=== PATIENT | male | born 1930 | race Caucasian/White ===

== ENCOUNTER 2021-05-02 18:03 | Inpatient (IN) ==
[2021-05-03] MEDS ORDERED: Dextrose Gel 15 GM/37.5 ML TUBE PO PRN ×2 (01:13)
[2021-05-03] MEDS ORDERED: *HR* Dextrose 50 % in Water (Syg) 50 ML SYRINGE IVP PRN (01:13)
[2021-05-03] MEDS ORDERED: D5% in Water 1,000 ML IVC PRN (01:13)
[2021-05-03] MEDS ORDERED: Perflutren Lipid Microsphere 1.3 ML in 0.9 % Sodium Chloride 8.7 ML IVP PRN (01:13)
[2021-05-03] MEDS ORDERED: Naloxone 0.4 MG/ML INJ IVP PRN (01:16)
[2021-05-03] MEDS ORDERED: Ondansetron 4 MG/2 ML VIAL IVP PRN (01:16)
[2021-05-03] MEDS ORDERED: Acetaminophen 325 MG TABLET PO PRN (01:26)
[2021-05-03] MEDS ORDERED: tiZANidine 4 MG TABLET PO PRN (01:47)
[2021-05-03 01:57] LABS: Basophils % 0.7 %; Eosinophils # 0.2 K/mcL (0.0-0.6); Eosinophils % 3.6 %; Hematocrit 31.3 % (37.5-50.1); Hemoglobin 9.7 g/dL (12.9-16.9); Immature Granulocytes % 1.1 % (0-4); Lymphocytes # 0.5 K/mcL (0.6-4.6); Lymphocytes % 9.7 %; Mean Corpuscular Hemoglobin 28.8 pg (28.0-33.3); Mean Corpuscular Volume 92.9 fL (83.0-100.0); Mean Platelet Volume 10.1 fL (9.4-12.4); Monocytes # 0.8 K/mcL (0.0-1.3); Monocytes % 13.5 %; Platelet Count 234 K/mcL (140-400); Red Blood Count 3.37 M/mcL (4.19-5.50); Red Cell Distribution Width 16.8 % (11.5-14.5); Segmented Neutrophils % 71.4 %; White Blood Count 5.6 K/mcL (4.3-11.1)
[2021-05-03 02:01] LABS: Estimated Average Glucose 146 mg/dl; Hemoglobin A1C 6.7 %
[2021-05-03 02:10] LABS: INR 1.4; Prothrombin Time 15.6 Seconds (9.4-12.1)
[2021-05-03 02:13] LABS: Activated Partial Thrombo Time 39.8 Seconds (26.0-36.0)
[2021-05-03 02:40] LABS: Troponin I 0.29 ng/mL (< 0.04)
[2021-05-03] MEDS ORDERED: *HR* Heparin 5,000 UNIT/ML VIAL IVP PRN ×2 (02:45)
[2021-05-03] MEDS ORDERED: Heparin 25,000UNIT/250ML 1/2NS 25,000 UNIT/250 ML IV.SOLN IVC SCH ×2 (02:45→04:15)
[2021-05-03 03:02] LABS: Alanine Aminotransferase 13 Units/L (7-52); Albumin 3.4 g/dL (3.5-5.7); Albumin/Globulin Ratio 1.1 (1.1-2.2); Alkaline Phosphatase 45 Units/L (34-104); Aspartate Amino Transferase 37 Units/L (13-39); BUN/Creatinine Ratio 15 (6-26); Bilirubin,Total 0.6 mg/dL (0.3-1.0); Blood Urea Nitrogen 16 mg/dL (8-23); Calcium 9.7 mg/dL (8.6-10.3); Carbon Dioxide 21 mEq/L (23-29); Chloride 107 mEq/L (98-107); Globulin 3.2 g/dL (2.4-3.5); Glucose 128 mg/dL (70-105); Iron 34 mcg/dL (65-175); Osmolality,Calculated 291 (280-300); Potassium 3.9 mEq/L (3.5-5.1); Sodium 139 mEq/L (136-145); Total Protein 6.6 g/dL (6.4-8.9); eGFR For African Americans > 60 (> 60); eGFR For Non-African Americans > 60 (> 60)
[2021-05-03 03:05] LABS: Magnesium 1.6 mg/dL (1.6-2.6)
[2021-05-03 03:26] LABS: Folate > 22.3 ng/mL (3.0-16.0); Vitamin B12 > 1500 pg/mL (250-1100)
[2021-05-03] MEDS ORDERED: Heparin 25,000 UNIT/250 ML 25,000 UNIT/250 ML IV.SOLN IVC SCH ×2 (03:30→04:15)
[2021-05-03 03:57] LABS: Ferritin 35 ng/mL (20-250)
[2021-05-03 04:05] LABS: % Iron Saturation 7 % (20-55); Transferrin 370 mg/dL (203-362)
[2021-05-03] MEDS: Insulin LISPRO 300 UNITS/3 ML VIAL SUBQ SCH ×4 (06:20→23:50)
[2021-05-03 06:45] LABS: Bilirubin,Urine Negative (Negative); Blood,Urine Negative (Negative); Clarity,Urine Clear (Clear); Color,Urine Light-Yellow (Yellow); Glucose,Urine (UA) Normal (Normal); Ketones,Urine 10 mg/dL (Negative); Leukocyte Esterase,Urine Trace (Negative); Nitrite,Urine Negative (Negative); PH,Urine 5.5 pH Units (5.0-8.0); Protein,Urine Trace mg/dL (Neg-Trace); RBC,Urine 0-3 per hpf (0-3); Specific Gravity,Urine 1.015 (1.010-1.025); Squamous Epithelial Cell,Urine Few per hpf (None-Few); Urobilinogen,Urine Normal (Normal)
[2021-05-03] MEDS: Pantoprazole 40 MG VIAL IVP SCH (08:30)
[2021-05-03] MEDS: amLODIPine 5 MG TABLET PO SCH (08:30)
[2021-05-03] MEDS: Ranolazine 500 MG TAB.ER.12H PO SCH ×2 (08:30→22:00)
[2021-05-03] MEDS: carvediloL 6.25 MG TABLET PO SCH ×2 (08:31→18:11)
[2021-05-03] MEDS: Finasteride 5 MG TABLET PO SCH (08:31)
[2021-05-04] MEDS: traZODone 50 MG TABLET PO PRN ×2 (00:44→23:49)
[2021-05-04] MEDS: Insulin LISPRO 300 UNITS/3 ML VIAL SUBQ SCH ×4 (05:59→22:40)
[2021-05-04 07:25] LABS: Hematocrit 25.4 % (37.5-50.1); Mean Corpuscular HGB Conc 31.5 g/dL (31.6-35.5); Mean Corpuscular Hemoglobin 29.1 pg (28.0-33.3); Mean Corpuscular Volume 92.4 fL (83.0-100.0); Platelet Count 184 K/mcL (140-400); Red Blood Count 2.75 M/mcL (4.19-5.50); Red Cell Distribution Width 16.6 % (11.5-14.5); White Blood Count 4.4 K/mcL (4.3-11.1)
[2021-05-04 07:40] LABS: BUN/Creatinine Ratio 15 (6-26); Blood Urea Nitrogen 15 mg/dL (8-23); Carbon Dioxide 25 mEq/L (23-29); Chloride 108 mEq/L (98-107); Glucose 80 mg/dL (70-105); Osmolality,Calculated 288 (280-300); Potassium 3.5 mEq/L (3.5-5.1); Sodium 139 mEq/L (136-145); eGFR For African Americans > 60 (> 60); eGFR For Non-African Americans > 60 (> 60)
[2021-05-04] MEDS: Pantoprazole 40 MG VIAL IVP SCH (08:29)
[2021-05-04] MEDS: Ranolazine 500 MG TAB.ER.12H PO SCH ×2 (08:30→19:54)
[2021-05-04] MEDS: Finasteride 5 MG TABLET PO SCH (08:30)
[2021-05-04] MEDS: amLODIPine 5 MG TABLET PO SCH (08:30)
[2021-05-04] MEDS: carvediloL 6.25 MG TABLET PO SCH ×2 (08:30→17:07)
[2021-05-04] MEDS ORDERED: Lidocaine HCL 4 ML Topical Solution (Laryng-O-Jet Kit Sterile Pak) TP ONE (11:27)
[2021-05-04] MEDS ORDERED: *HR* Rocuronium Bromide 50 MG/5 ML VIAL ONE (11:27)
[2021-05-04] MEDS ORDERED: Ondansetron 4 MG/2 ML VIAL ONE (11:27)
[2021-05-04] MEDS ORDERED: Lidocaine -MPF 2% 5 ML VIAL ONE (11:27)
[2021-05-04] MEDS ORDERED: *HR* FentaNYL (PF) 100 MCG/2 ML VIAL ONE (11:28)
[2021-05-04] MEDS ORDERED: Vancomycin 1,000 MG VIAL ONE (11:29)
[2021-05-04] MEDS ORDERED: *HR* Phenylephrine 10 MG/ML VIAL ONE (11:29)
[2021-05-04] MEDS ORDERED: CeFAZolin Syr 2,000MG/20 ML 2,000 MG/20 ML SYRINGE IVPB ONE (11:30)
[2021-05-04] MEDS ORDERED: Ringers Solution, Lactated 1,000 ML IVC SCH ×2 (11:30→14:30)
[2021-05-04] MEDS ORDERED: Heparin 1,000 UNITS/500 mL 500 ML ONE (11:35)
[2021-05-04] MEDS ORDERED: Albumin Human 5% 25.0 GM/500 ML IV.SOLN ONE (12:02)
[2021-05-04] MEDS ORDERED: Acetaminophen IV 1,000 MG/100 ML BAG IVPB ONE (13:05)
[2021-05-04] MEDS ORDERED: Tranexamic Acid 1,000 MG/10 ML VIAL ONE (13:05)
[2021-05-04] MEDS ORDERED: *HR* HYDROMORPHONE 2 MG/ML VIAL ONE (13:44)
[2021-05-04] MEDS ORDERED: Sugammadex Sodium 200 MG/2 ML VIAL IV ONE (13:51)
[2021-05-04] MEDS ORDERED: MOM Conc 10 ML UD.LIQ PO PRN (14:18)
[2021-05-04] MEDS ORDERED: *HR* Promethazine 25 MG/ML VIAL IM PRN (14:18)
[2021-05-04] MEDS ORDERED: Naloxone 0.4 MG/ML INJ IVP PRN (14:18)
[2021-05-04] MEDS ORDERED: Ondansetron 4 MG/2 ML VIAL IVP PRN (14:18)
[2021-05-04] MEDS ORDERED: Sennosides 8.6 MG TABLET PO PRN (14:18)
[2021-05-04] MEDS ORDERED: *HR* FentaNYL (PF) 100 MCG/2 ML VIAL IVP PRN (14:42)
[2021-05-04] MEDS ORDERED: *HR* HYDROmorphone PF 0.5 MG/0.5 ML SYRINGE IVP PRN (14:42)
[2021-05-04] MEDS: Ascorbic Acid 500 MG TABLET PO SCH (17:07)
[2021-05-04] MEDS: *HR* OxyCODONE Immed Rel 5 MG TABLET PO PRN (17:28)
[2021-05-04] MEDS: Apixaban 2.5 MG TABLET PO SCH (19:54)
[2021-05-04] MEDS: CeFAZolin 2 GM/120 ML BAG IVPB SCH (19:55)
[2021-05-04] MEDS: Aspirin Enteric Coated 81 MG Tablet PO SCH (19:55)
[2021-05-04 21:53] LABS: Hemoglobin 8.5 g/dL (12.9-16.9)
[2021-05-05] MEDS: CeFAZolin 2 GM/120 ML BAG IVPB SCH (05:12)
[2021-05-05 07:45] LABS: Hematocrit 23.3 % (37.5-50.1); Hemoglobin 7.4 g/dL (12.9-16.9); Immature Granulocytes % 1.5 % (0-4); Lymphocytes # 0.3 K/mcL (0.6-4.6); Lymphocytes % 6.3 %; Mean Corpuscular HGB Conc 31.8 g/dL (31.6-35.5); Mean Corpuscular Hemoglobin 29.5 pg (28.0-33.3); Mean Corpuscular Volume 92.8 fL (83.0-100.0); Mean Platelet Volume 10.9 fL (9.4-12.4); Monocytes # 0.4 K/mcL (0.0-1.3); Monocytes % 8.4 %; Platelet Count 176 K/mcL (140-400); Red Blood Count 2.51 M/mcL (4.19-5.50); Red Cell Distribution Width 16.1 % (11.5-14.5); Segmented Neutrophils % 83.8 %; White Blood Count 4.8 K/mcL (4.3-11.1)
[2021-05-05 08:06] LABS: BUN/Creatinine Ratio 20 (6-26); Blood Urea Nitrogen 23 mg/dL (8-23); Calcium 8.6 mg/dL (8.6-10.3); Carbon Dioxide 18 mEq/L (23-29); Chloride 105 mEq/L (98-107); Glucose 198 mg/dL (70-105); Osmolality,Calculated 287 (280-300); Sodium 134 mEq/L (136-145); eGFR For African Americans > 60 (> 60); eGFR For Non-African Americans > 60 (> 60)
[2021-05-05] MEDS: Apixaban 2.5 MG TABLET PO SCH ×2 (09:25→21:01)
[2021-05-05] MEDS: carvediloL 6.25 MG TABLET PO SCH ×2 (09:25→18:14)
[2021-05-05] MEDS: Ascorbic Acid 500 MG TABLET PO SCH ×2 (09:26→18:14)
[2021-05-05] MEDS: Pantoprazole 40 MG VIAL IVP SCH (09:26)
[2021-05-05] MEDS: Multivit/Ca/Min/Fe/FA 1 TAB TABLET PO SCH (09:26)
[2021-05-05] MEDS: Finasteride 5 MG TABLET PO SCH (09:26)
[2021-05-05] MEDS: *HR* OxyCODONE Immed Rel 5 MG TABLET PO PRN ×2 (09:26→15:34)
[2021-05-05] MEDS: amLODIPine 5 MG TABLET PO SCH (09:26)
[2021-05-05] MEDS: Ranolazine 500 MG TAB.ER.12H PO SCH ×2 (09:27→21:01)
[2021-05-05] MEDS: Aspirin Enteric Coated 81 MG Tablet PO SCH ×2 (09:27→21:01)
[2021-05-05] MEDS: Insulin LISPRO 300 UNITS/3 ML VIAL SUBQ SCH ×4 (09:30→21:01)
[2021-05-05] MEDS: *HR* HYDROcodone/Acet 5/325 mg TABLET PO PRN (18:13)
[2021-05-05 19:12] LABS: Hematocrit 28.1 % (37.5-50.1); Hemoglobin 8.9 g/dL (12.9-16.9)
[2021-05-05] MEDS ORDERED: *HR* HYDROmorphone (PF) 1 MG/ML SYRINGE IVP ONE (20:17)
[2021-05-05] MEDS ORDERED: Insulin LISPRO 300 UNITS/3 ML VIAL SUBQ SCH (21:00)
[2021-05-06 03:07] LABS: Basophils % 0.3 %; Eosinophils # 0.1 K/mcL (0.0-0.6); Eosinophils % 1.2 %; Hemoglobin 8.3 g/dL (12.9-16.9); Immature Granulocytes % 1.6 % (0-4); Lymphocytes # 0.6 K/mcL (0.6-4.6); Lymphocytes % 9.1 %; Mean Corpuscular HGB Conc 31.9 g/dL (31.6-35.5); Mean Corpuscular Hemoglobin 30.1 pg (28.0-33.3); Mean Corpuscular Volume 94.2 fL (83.0-100.0); Mean Platelet Volume 10.9 fL (9.4-12.4); Monocytes # 0.8 K/mcL (0.0-1.3); Monocytes % 12.1 %; Neutrophils # 5.3 K/mcL (1.6-8.9); Nucleated Red Blood Cells 0.4 /100 WBC (0); Platelet Count 243 K/mcL (140-400); Red Blood Count 2.76 M/mcL (4.19-5.50); Red Cell Distribution Width 16.4 % (11.5-14.5); Segmented Neutrophils % 75.7 %; White Blood Count 6.9 K/mcL (4.3-11.1)
[2021-05-06 03:27] LABS: Calcium 9.3 mg/dL (8.6-10.3); Potassium 3.9 mEq/L (3.5-5.1)
[2021-05-06] MEDS: Aspirin Enteric Coated 81 MG Tablet PO SCH ×2 (09:29→20:00)
[2021-05-06] MEDS: Apixaban 2.5 MG TABLET PO SCH ×2 (09:29→20:00)
[2021-05-06] MEDS: carvediloL 6.25 MG TABLET PO SCH ×2 (09:30→17:20)
[2021-05-06] MEDS: Multivit/Ca/Min/Fe/FA 1 TAB TABLET PO SCH (09:30)
[2021-05-06] MEDS: Finasteride 5 MG TABLET PO SCH (09:30)
[2021-05-06] MEDS: Pantoprazole 40 MG VIAL IVP SCH (09:31)
[2021-05-06] MEDS: Ranolazine 500 MG TAB.ER.12H PO SCH ×2 (09:31→20:00)
[2021-05-06] MEDS: Ascorbic Acid 500 MG TABLET PO SCH ×2 (09:31→17:21)
[2021-05-06] MEDS: amLODIPine 5 MG TABLET PO SCH (09:31)
[2021-05-06] MEDS: Insulin LISPRO 300 UNITS/3 ML VIAL SUBQ SCH ×4 (09:32→20:01)
[2021-05-06] MEDS: *HR* HYDROcodone/Acet 5/325 mg TABLET PO PRN ×2 (09:39→20:00)
[2021-05-07 07:17] LABS: Basophils % 0.2 %; Eosinophils # 0.1 K/mcL (0.0-0.6); Eosinophils % 2.6 %; Hematocrit 22.6 % (37.5-50.1); Hemoglobin 7.3 g/dL (12.9-16.9); Immature Granulocytes % 2.7 % (0-4); Lymphocytes # 0.6 K/mcL (0.6-4.6); Lymphocytes % 10.6 %; Mean Corpuscular HGB Conc 32.3 g/dL (31.6-35.5); Mean Corpuscular Hemoglobin 29.6 pg (28.0-33.3); Mean Corpuscular Volume 91.5 fL (83.0-100.0); Mean Platelet Volume 10.6 fL (9.4-12.4); Monocytes # 0.8 K/mcL (0.0-1.3); Monocytes % 14.4 %; Neutrophils # 3.8 K/mcL (1.6-8.9); Nucleated Red Blood Cells 0.7 /100 WBC (0); Platelet Count 214 K/mcL (140-400); Red Blood Count 2.47 M/mcL (4.19-5.50); Red Cell Distribution Width 16.7 % (11.5-14.5); Segmented Neutrophils % 69.5 %; White Blood Count 5.5 K/mcL (4.3-11.1)
[2021-05-07 07:40] LABS: BUN/Creatinine Ratio 29 (6-26); Blood Urea Nitrogen 37 mg/dL (8-23); Calcium 9.4 mg/dL (8.6-10.3); Carbon Dioxide 24 mEq/L (23-29); Chloride 110 mEq/L (98-107); Glucose 170 mg/dL (70-105); Osmolality,Calculated 303 (280-300); Potassium 4.3 mEq/L (3.5-5.1); Sodium 140 mEq/L (136-145); eGFR For African Americans > 60 (> 60); eGFR For Non-African Americans 53 (> 60)
[2021-05-07] MEDS: Finasteride 5 MG TABLET PO SCH (08:16)
[2021-05-07] MEDS: Ascorbic Acid 500 MG TABLET PO SCH ×2 (08:16→16:44)
[2021-05-07] MEDS: Apixaban 2.5 MG TABLET PO SCH ×2 (08:16→20:42)
[2021-05-07] MEDS: Aspirin Enteric Coated 81 MG Tablet PO SCH ×2 (08:16→20:42)
[2021-05-07] MEDS: Multivit/Ca/Min/Fe/FA 1 TAB TABLET PO SCH (08:16)
[2021-05-07] MEDS: carvediloL 6.25 MG TABLET PO SCH ×2 (08:17→16:44)
[2021-05-07] MEDS: Ranolazine 500 MG TAB.ER.12H PO SCH ×2 (08:17→20:42)
[2021-05-07] MEDS: amLODIPine 5 MG TABLET PO SCH (08:17)
[2021-05-07] MEDS: Pantoprazole 40 MG VIAL IVP SCH (08:18)
[2021-05-07] MEDS: Insulin LISPRO 300 UNITS/3 ML VIAL SUBQ SCH ×4 (08:18→20:42)
[2021-05-07] MEDS: *HR* OxyCODONE Immed Rel 5 MG TABLET PO PRN (16:44)
[2021-05-08 05:08] LABS: Basophils % 0.3 %; Eosinophils # 0.2 K/mcL (0.0-0.6); Eosinophils % 2.8 %; Hemoglobin 7.4 g/dL (12.9-16.9); Immature Granulocytes % 2.3 % (0-4); Lymphocytes # 0.6 K/mcL (0.6-4.6); Lymphocytes % 10.9 %; Mean Corpuscular HGB Conc 32.2 g/dL (31.6-35.5); Mean Corpuscular Hemoglobin 29.6 pg (28.0-33.3); Mean Platelet Volume 10.9 fL (9.4-12.4); Monocytes # 0.7 K/mcL (0.0-1.3); Monocytes % 11.6 %; Neutrophils # 4.2 K/mcL (1.6-8.9); Nucleated Red Blood Cells 0.7 /100 WBC (0); Platelet Count 215 K/mcL (140-400); Red Cell Distribution Width 17.1 % (11.5-14.5); Segmented Neutrophils % 72.1 %; White Blood Count 5.8 K/mcL (4.3-11.1)
[2021-05-08 05:21] LABS: BUN/Creatinine Ratio 31 (6-26); Blood Urea Nitrogen 33 mg/dL (8-23); Calcium 9.4 mg/dL (8.6-10.3); Carbon Dioxide 22 mEq/L (23-29); Chloride 110 mEq/L (98-107); Glucose 147 mg/dL (70-105); Osmolality,Calculated 300 (280-300); Potassium 4.2 mEq/L (3.5-5.1); Sodium 140 mEq/L (136-145); eGFR For African Americans > 60 (> 60); eGFR For Non-African Americans > 60 (> 60)
[2021-05-08] MEDS: *HR* OxyCODONE Immed Rel 5 MG TABLET PO PRN (05:47)
[2021-05-08] MEDS: Insulin LISPRO 300 UNITS/3 ML VIAL SUBQ SCH ×4 (09:01→20:23)
[2021-05-08] MEDS: Aspirin Enteric Coated 81 MG Tablet PO SCH ×2 (09:02→20:20)
[2021-05-08] MEDS: carvediloL 6.25 MG TABLET PO SCH ×2 (09:02→17:23)
[2021-05-08] MEDS: Finasteride 5 MG TABLET PO SCH (09:02)
[2021-05-08] MEDS: Multivit/Ca/Min/Fe/FA 1 TAB TABLET PO SCH (09:03)
[2021-05-08] MEDS: amLODIPine 5 MG TABLET PO SCH (09:04)
[2021-05-08] MEDS: Apixaban 2.5 MG TABLET PO SCH ×2 (09:05→20:20)
[2021-05-08] MEDS: Pantoprazole 40 MG VIAL IVP SCH (09:05)
[2021-05-08] MEDS: Ascorbic Acid 500 MG TABLET PO SCH ×2 (09:05→17:23)
[2021-05-08] MEDS: Ranolazine 500 MG TAB.ER.12H PO SCH ×2 (09:05→20:20)
[2021-05-08 16:21] LABS: Adenovirus Not Detected (Not Detect); Bordetella Pertussis Not Detected (Not Detect); Chlamydophila pneumoniae Not Detected (Not Detect); Coronavirus 229E Not Detected (Not Detect); Coronavirus HKU1 Not Detected (Not Detect); Coronavirus NL63 Not Detected (Not Detect); Coronavirus OC43 Not Detected (Not Detect); Human Metapneumovirus Not Detected (Not Detect); Human Rhinovirus/Enterovirus Not Detected (Not Detect); Influenza A Subtype 2009 H1 Not Detected (Not Detect); Influenza B Not Detected (Not Detect); Mycoplasma pneumoniae Not Detected (Not Detect); Parainfluenza Virus 1 Not Detected (Not Detect); Parainfluenza Virus 2 Not Detected (Not Detect); Parainfluenza Virus 3 Not Detected (Not Detect); Parainfluenza Virus 4 Not Detected (Not Detect); Respiratory Syncytial Virus Not Detected (Not Detect); SARS-CoV-2 Not Detected (Not Detect)
[2021-05-08 18:33] VITALS: BP 129/67; PULSE 77; TEMP 97.6; O2SAT 98
== END 2021-05-08 22:11 | DRG 522 ==
LOC: 4WAOSI → SUATTDRO 05-03 03:29
PROVIDERS: ADMIT Internal Medicine; ATTEND Student in an Organized Health Care Education/Training Program

== ENCOUNTER 2021-09-08 16:18 | Inpatient (IN) ==
[2021-09-08] MEDS ORDERED: polyethylene glycoL 3350 17 GM POWD.PACK PO PRN (23:19)
[2021-09-08] MEDS ORDERED: Acetaminophen 325 MG TABLET PO PRN (23:25)
[2021-09-08] MEDS ORDERED: Ondansetron 4 MG/2 ML VIAL IVP PRN (23:25)
[2021-09-08] MEDS ORDERED: Naloxone 0.4 MG/ML INJ IVP PRN (23:25)
[2021-09-08] MEDS ORDERED: amLODIPine 5 MG TABLET PO SCH (23:30)
[2021-09-08] MEDS ORDERED: traZODone 50 MG TABLET PO SCH (23:45)
[2021-09-09] MEDS ORDERED: Dextrose 4 GM Chewable Tablets PO PRN ×2 (00:08)
[2021-09-09] MEDS ORDERED: D5% in Water 1,000 ML IVC PRN (00:08)
[2021-09-09] MEDS ORDERED: *HR* Dextrose 50 % in Water (Syg) 50 ML SYRINGE IVP PRN (00:08)
[2021-09-09] MEDS: 0.9 % Sodium Chloride 1,000 ML IVC SCH ×2 (00:11→19:05)
[2021-09-09 00:45] LABS: Bacteria,Urine Few per hpf (None-Few); Bilirubin,Urine Negative (Negative); Blood,Urine Negative (Negative); Clarity,Urine Clear (Clear); Color,Urine Yellow (Yellow); Glucose,Urine (UA) Normal (Normal); Granular Casts,Urine Few per lpf (None Seen); Hyaline Casts,Urine Many per lpf (None Seen); Ketones,Urine Trace mg/dL (Negative); Leukocyte Esterase,Urine Moderate (Negative); Mucus,Urine Few per lpf (None-Few); Nitrite,Urine Negative (Negative); PH,Urine 5.5 pH Units (5.0-8.0); Protein,Urine Trace mg/dL (Neg-Trace); Specific Gravity,Urine 1.022 (1.010-1.025); Squamous Epithelial Cell,Urine Few per hpf (None-Few)
[2021-09-09 00:47] LABS: Hematocrit 37.1 % (37.5-50.1); Hemoglobin 12.6 g/dL (12.9-16.9); Mean Corpuscular Hemoglobin 32.1 pg (28.0-33.3); Mean Corpuscular Volume 94.4 fL (83.0-100.0); Mean Platelet Volume 9.9 fL (9.4-12.4); Platelet Count 300 K/mcL (140-400); Red Blood Count 3.93 M/mcL (4.19-5.50); Red Cell Distribution Width 18.4 % (11.5-14.5); White Blood Count 10.7 K/mcL (4.3-11.1)
[2021-09-09] MEDS: Insulin LISPRO 300 UNITS/3 ML VIAL SUBQ SCH ×5 (00:52→21:11)
[2021-09-09 00:59] LABS: INR 1.1; Prothrombin Time 12.7 Seconds (9.4-12.1)
[2021-09-09 01:01] LABS: Activated Partial Thrombo Time 30.7 Seconds (26.0-36.0)
[2021-09-09 01:04] LABS: BUN/Creatinine Ratio 26 (6-26); Blood Urea Nitrogen 27 mg/dL (8-23); Calcium 9.2 mg/dL (8.6-10.3); Carbon Dioxide 29 mEq/L (23-29); Chloride 104 mEq/L (98-107); Chol/HDL Ratio 4.3 (0-4.9); Glucose 142 mg/dL (70-105); Magnesium 1.6 mg/dL (1.6-2.6); Osmolality,Calculated 302 (280-300); Sodium 142 mEq/L (136-145); eGFR For African Americans > 60 (> 60); eGFR For Non-African Americans > 60 (> 60)
[2021-09-09 01:05] LABS: Troponin I 0.03 ng/mL (< 0.04)
[2021-09-09 01:17] LABS: Thyroid Stimulating Hormone 4.662 mcIU/mL (0.340-5.600)
[2021-09-09 01:27] LABS: Folate 13.7 ng/mL (3.0-16.0); Vitamin D 25 Hydroxy 39 ng/mL (30-80)
[2021-09-09 01:28] LABS: Vitamin B12 > 1500 pg/mL (250-1100)
[2021-09-09] MEDS: cefTRIAXone 1,000 MG in 0.9 % Sodium Chloride Mini Bag 100 ML IVPB SCH (01:50)
[2021-09-09] MEDS ORDERED: carvediloL 6.25 MG TABLET PO SCH (08:00)
[2021-09-09] MEDS ORDERED: traZODone 50 MG TABLET PO PRN (08:48)
[2021-09-09] MEDS: Ranolazine 500 MG TAB.ER.12H PO SCH ×2 (08:53→21:10)
[2021-09-09] MEDS: Apixaban 5 MG TABLET PO SCH ×2 (08:53)
[2021-09-09] MEDS: *HR* Pioglitazone 30 MG TABLET PO SCH (08:54)
[2021-09-09] MEDS: Aspirin Enteric Coated 81 MG Tablet PO SCH (08:54)
[2021-09-09] MEDS ORDERED: Finasteride 5 MG TABLET PO SCH (09:00)
[2021-09-09 10:11] LABS: Estimated Average Glucose 148 mg/dl; Hemoglobin A1C 6.8 %
[2021-09-09] MEDS ORDERED: QUEtiapine Fumarate 25 MG TABLET PO PRN (16:39)
[2021-09-09] MEDS: carvediloL 6.25 MG TABLET PO SCH (17:15)
[2021-09-09] MEDS: traZODone 50 MG TABLET PO SCH (21:09)
[2021-09-09] MEDS: amLODIPine 5 MG TABLET PO SCH (21:10)
[2021-09-09] MEDS: Apixaban 2.5 MG TABLET PO SCH (21:10)
[2021-09-10 05:36] LABS: Mean Corpuscular HGB Conc 30.6 g/dL (31.6-35.5); Mean Corpuscular Hemoglobin 29.6 pg (28.0-33.3); Mean Corpuscular Volume 96.7 fL (83.0-100.0); Mean Platelet Volume 10.1 fL (9.4-12.4); Platelet Count 225 K/mcL (140-400); Red Blood Count 3.31 M/mcL (4.19-5.50); Red Cell Distribution Width 18.1 % (11.5-14.5); White Blood Count 9.4 K/mcL (4.3-11.1)
[2021-09-10 05:41] LABS: Hemoglobin 9.8 g/dL (12.9-16.9)
[2021-09-10 05:59] LABS: BUN/Creatinine Ratio 32 (6-26); Blood Urea Nitrogen 38 mg/dL (8-23); Carbon Dioxide 29 mEq/L (23-29); Chloride 106 mEq/L (98-107); Glucose 173 mg/dL (70-105); Osmolality,Calculated 307 (280-300); Potassium 4.9 mEq/L (3.5-5.1); Sodium 142 mEq/L (136-145); eGFR For African Americans > 60 (> 60); eGFR For Non-African Americans 58 (> 60)
[2021-09-10] MEDS: Insulin LISPRO 300 UNITS/3 ML VIAL SUBQ SCH ×4 (08:47→22:14)
[2021-09-10] MEDS: cefTRIAXone 1,000 MG in 0.9 % Sodium Chloride Mini Bag 100 ML IVPB SCH (08:48)
[2021-09-10] MEDS: Apixaban 2.5 MG TABLET PO SCH ×2 (08:53→22:13)
[2021-09-10] MEDS: *HR* Pioglitazone 30 MG TABLET PO SCH (08:54)
[2021-09-10] MEDS: Aspirin Enteric Coated 81 MG Tablet PO SCH (08:54)
[2021-09-10] MEDS: carvediloL 6.25 MG TABLET PO SCH ×2 (08:54→17:22)
[2021-09-10] MEDS: Finasteride 5 MG TABLET PO SCH (08:54)
[2021-09-10] MEDS: Ranolazine 500 MG TAB.ER.12H PO SCH ×2 (08:54→22:13)
[2021-09-10] MEDS ORDERED: Albumin 25% 25gram/100mL 25 GM/100 ML IV.SOLN IVPB ONE (21:54)
[2021-09-10] MEDS: traZODone 50 MG TABLET PO SCH (22:13)
[2021-09-10] MEDS: Leptospermum Honey Paste 44 ML TUBE TP SCH (22:15)
[2021-09-10] MEDS: amLODIPine 5 MG TABLET PO SCH (22:15)
[2021-09-11] MEDS: Insulin LISPRO 300 UNITS/3 ML VIAL SUBQ SCH ×3 (08:26→17:04)
[2021-09-11] MEDS: Aspirin Enteric Coated 81 MG Tablet PO SCH (08:26)
[2021-09-11] MEDS: Finasteride 5 MG TABLET PO SCH (08:27)
[2021-09-11] MEDS: Ranolazine 500 MG TAB.ER.12H PO SCH ×2 (08:27→20:29)
[2021-09-11] MEDS: Apixaban 2.5 MG TABLET PO SCH ×2 (08:27→20:28)
[2021-09-11] MEDS: cefTRIAXone 1,000 MG in 0.9 % Sodium Chloride Mini Bag 100 ML IVPB SCH (08:27)
[2021-09-11] MEDS: *HR* Pioglitazone 30 MG TABLET PO SCH (08:27)
[2021-09-11] MEDS: carvediloL 6.25 MG TABLET PO SCH ×2 (08:49→17:21)
[2021-09-11] MEDS: Leptospermum Honey Paste 44 ML TUBE TP SCH (10:40)
[2021-09-11] MEDS: Cefepime HCl 2,000 MG in 0.9 % Sodium Chloride 10 ML IVP SCH (12:03)
[2021-09-11] MEDS: metroNIDAZOLE 500 MG TABLET PO SCH ×2 (12:03→17:22)
[2021-09-11] MEDS: traZODone 50 MG TABLET PO SCH (20:28)
[2021-09-11] MEDS: amLODIPine 5 MG TABLET PO SCH (20:28)
[2021-09-12] MEDS: Insulin LISPRO 300 UNITS/3 ML VIAL SUBQ SCH ×5 (00:52→20:42)
[2021-09-12] MEDS: Leptospermum Honey Paste 44 ML TUBE TP SCH ×3 (00:53→20:37)
[2021-09-12] MEDS: Cefepime HCl 2,000 MG in 0.9 % Sodium Chloride 10 ML IVP SCH ×2 (01:04→14:44)
[2021-09-12] MEDS ORDERED: 0.9 % Sodium Chloride 1,000 ML IVC ONE (03:06)
[2021-09-12 05:24] LABS: Basophils % 0.3 %; Eosinophils # 0.1 K/mcL (0.0-0.6); Eosinophils % 1.1 %; Hemoglobin 8.6 g/dL (12.9-16.9); Lymphocytes # 0.5 K/mcL (0.6-4.6); Mean Corpuscular HGB Conc 29.7 g/dL (31.6-35.5); Mean Corpuscular Hemoglobin 29.8 pg (28.0-33.3); Mean Corpuscular Volume 100.3 fL (83.0-100.0); Monocytes # 0.6 K/mcL (0.0-1.3); Monocytes % 8.7 %; Neutrophils # 5.7 K/mcL (1.6-8.9); Nucleated Red Blood Cells 0.3 /100 WBC (0); Platelet Count 205 K/mcL (140-400); Red Blood Count 2.89 M/mcL (4.19-5.50); Red Cell Distribution Width 18.8 % (11.5-14.5); Segmented Neutrophils % 80.9 %
[2021-09-12 05:46] LABS: Calcium 8.4 mg/dL (8.6-10.3); Potassium 4.6 mEq/L (3.5-5.1)
[2021-09-12] MEDS ORDERED: Ringers Solution, Lactated 500 ML IVC ONE (08:10)
[2021-09-12] MEDS: metroNIDAZOLE 500 MG TABLET PO SCH ×3 (08:17→17:38)
[2021-09-12] MEDS: Finasteride 5 MG TABLET PO SCH (08:17)
[2021-09-12] MEDS: *HR* Pioglitazone 30 MG TABLET PO SCH (08:18)
[2021-09-12] MEDS: Apixaban 2.5 MG TABLET PO SCH ×2 (08:18→20:37)
[2021-09-12] MEDS: carvediloL 6.25 MG TABLET PO SCH ×2 (08:19→17:39)
[2021-09-12] MEDS: Ranolazine 500 MG TAB.ER.12H PO SCH ×2 (08:19→20:37)
[2021-09-12] MEDS: Aspirin Enteric Coated 81 MG Tablet PO SCH (08:21)
[2021-09-12] MEDS ORDERED: Vancomycin 1,250 MG/262.5 ML IV.SOLN IVPB ONE (12:00)
[2021-09-12] MEDS: traZODone 50 MG TABLET PO SCH (20:37)
[2021-09-13] MEDS: Cefepime HCl 2,000 MG in 0.9 % Sodium Chloride 10 ML IVP SCH ×2 (02:15→13:39)
[2021-09-13 03:01] LABS: Basophils % 0.2 %; Eosinophils % 0.4 %; Hematocrit 29.1 % (37.5-50.1); Hemoglobin 8.7 g/dL (12.9-16.9); Immature Granulocytes % 2.3 % (0-4); Lymphocytes # 0.4 K/mcL (0.6-4.6); Lymphocytes % 4.6 %; Mean Corpuscular HGB Conc 29.9 g/dL (31.6-35.5); Mean Corpuscular Hemoglobin 29.9 pg (28.0-33.3); Mean Platelet Volume 10.2 fL (9.4-12.4); Monocytes # 0.7 K/mcL (0.0-1.3); Monocytes % 8.5 %; Neutrophils # 6.9 K/mcL (1.6-8.9); Nucleated Red Blood Cells 0.4 /100 WBC (0); Platelet Count 207 K/mcL (140-400); Red Blood Count 2.91 M/mcL (4.19-5.50); Red Cell Distribution Width 19.2 % (11.5-14.5); White Blood Count 8.2 K/mcL (4.3-11.1)
[2021-09-13 03:11] LABS: Calcium 8.7 mg/dL (8.6-10.3); Potassium 4.6 mEq/L (3.5-5.1)
[2021-09-13] MEDS ORDERED: Vancomycin 1,250 MG/262.5 ML IV.SOLN IVPB ONE (05:00)
[2021-09-13] MEDS: Insulin LISPRO 300 UNITS/3 ML VIAL SUBQ SCH ×4 (08:25→20:52)
[2021-09-13] MEDS: Aspirin Enteric Coated 81 MG Tablet PO SCH (08:35)
[2021-09-13] MEDS: metroNIDAZOLE 500 MG TABLET PO SCH ×3 (08:35→17:18)
[2021-09-13] MEDS: Finasteride 5 MG TABLET PO SCH (08:35)
[2021-09-13] MEDS: Ranolazine 500 MG TAB.ER.12H PO SCH ×2 (08:35→20:52)
[2021-09-13] MEDS: Pantoprazole 40 MG VIAL IVP SCH (08:35)
[2021-09-13] MEDS: carvediloL 6.25 MG TABLET PO SCH ×2 (08:36→17:18)
[2021-09-13] MEDS: Leptospermum Honey Paste 44 ML TUBE TP SCH ×2 (08:58→20:54)
[2021-09-13] MEDS ORDERED: 0.9 % Sodium Chloride 1,000 ML IVC ONE (20:10)
[2021-09-13] MEDS: traZODone 50 MG TABLET PO SCH (20:51)
[2021-09-14] MEDS: Cefepime HCl 2,000 MG in 0.9 % Sodium Chloride 10 ML IVP SCH ×3 (00:12→23:29)
[2021-09-14 05:12] LABS: Potassium 4.7 mEq/L (3.5-5.1)
[2021-09-14 05:29] LABS: Basophils % 0.2 %; Hematocrit 28.3 % (37.5-50.1); Hemoglobin 8.5 g/dL (12.9-16.9); Immature Granulocytes % 2.2 % (0-4); Lymphocytes # 0.4 K/mcL (0.6-4.6); Lymphocytes % 4.5 %; Mean Platelet Volume 10.4 fL (9.4-12.4); Monocytes # 0.8 K/mcL (0.0-1.3); Monocytes % 8.7 %; Neutrophils # 7.5 K/mcL (1.6-8.9); Nucleated Red Blood Cells 0.6 /100 WBC (0); Platelet Count 195 K/mcL (140-400); Red Blood Count 2.83 M/mcL (4.19-5.50); Red Cell Distribution Width 19.8 % (11.5-14.5); Segmented Neutrophils % 84.4 %; White Blood Count 8.9 K/mcL (4.3-11.1)
[2021-09-14] MEDS: metroNIDAZOLE 500 MG TABLET PO SCH ×2 (09:47→11:16)
[2021-09-14] MEDS: Finasteride 5 MG TABLET PO SCH (09:47)
[2021-09-14] MEDS: carvediloL 6.25 MG TABLET PO SCH (09:47)
[2021-09-14] MEDS: Aspirin Enteric Coated 81 MG Tablet PO SCH (09:47)
[2021-09-14] MEDS: Ranolazine 500 MG TAB.ER.12H PO SCH ×2 (09:48→20:32)
[2021-09-14] MEDS: Insulin LISPRO 300 UNITS/3 ML VIAL SUBQ SCH ×5 (09:52→23:36)
[2021-09-14] MEDS: Pantoprazole 40 MG VIAL IVP SCH (09:52)
[2021-09-14] MEDS: Leptospermum Honey Paste 44 ML TUBE TP SCH ×2 (11:15→20:34)
[2021-09-14] MEDS ORDERED: Artificial Tears SOLN 15 ML BOTTLE BOTH EYES PRN (14:15)
[2021-09-14] MEDS: FentaNYL (PF) 1,000 MCG/100 ML IV.SOLN IVC SCH (14:29)
[2021-09-14 14:37] LABS: ABG Base Excess 0 mEq/L (-2 to 3); ABG HCO3 27 mEq/L (21-27); ABG Oxygen Saturation 91 % (95-98); ABG PCO2 53 mmHg (35-45); ABG PH 7.31 pH Units (7.32-7.45); ABG PO2 68 mmHg (85-104); ABG TCO2 29 mEq/L (20-26); Blood Gas Modality ASSIST CONTROL; Blood Gas VT 450 cc
[2021-09-14 14:45] LABS: VBG Ionized Calcium 1.32 mmol/L (1.15-1.35)
[2021-09-14 14:50] LABS: Hematocrit 32.3 % (37.5-50.1); Hemoglobin 9.5 g/dL (12.9-16.9); Mean Corpuscular HGB Conc 29.4 g/dL (31.6-35.5); Mean Corpuscular Hemoglobin 29.9 pg (28.0-33.3); Mean Corpuscular Volume 101.6 fL (83.0-100.0); Mean Platelet Volume 10.3 fL (9.4-12.4); Nucleated Red Blood Cells 2.3 /100 WBC (0); Platelet Count 238 K/mcL (140-400); Red Blood Count 3.18 M/mcL (4.19-5.50); Red Cell Distribution Width 20.1 % (11.5-14.5); White Blood Count 12.3 K/mcL (4.3-11.1)
[2021-09-14] MEDS ORDERED: Perflutren Lipid Microsphere 1.3 ML in 0.9 % Sodium Chloride 8.7 ML IVP PRN (14:51)
[2021-09-14 14:57] LABS: INR 1.7; Prothrombin Time 18.6 Seconds (9.4-12.1)
[2021-09-14 15:15] LABS: RBC,Pleural Fluid < 2000 RBC/mcL
[2021-09-14 15:19] LABS: Appearance of Pleural Fl Clear (Clear)
[2021-09-14 15:25] LABS: Eosinophils # 0.3 K/mcL (0.0-0.6); Lymphocytes # 2.7 K/mcL (0.6-4.6); Neutrophils # 9.4 K/mcL (1.6-8.9)
[2021-09-14] MEDS ORDERED: *HR* Heparin 5,000 UNIT/ML VIAL IVP PRN ×2 (15:25)
[2021-09-14 15:26] LABS: Anisocytosis 1+ (Not Present); Macrocytosis Present (Not Present)
[2021-09-14 15:44] LABS: Activated Partial Thrombo Time 33.8 Seconds (26.0-36.0)
[2021-09-14 15:53] LABS: LDH,Pleural Fluid 66 Units/L (No Ref Range); Total Protein,Pleural Fluid < 2.0 g/dL
[2021-09-14 15:54] LABS: Albumin 2.5 g/dL (3.5-5.7); Albumin/Globulin Ratio 0.8 (1.1-2.2); Bilirubin,Total 0.5 mg/dL (0.3-1.0); Calcium 8.9 mg/dL (8.6-10.3); Globulin 3.3 g/dL (2.4-3.5); Potassium 4.5 mEq/L (3.5-5.1); Total Protein 5.8 g/dL (6.4-8.9)
[2021-09-14] MEDS: Artificial Tears SOLN 15 ML BOTTLE BOTH EYES SCH ×3 (15:56→22:27)
[2021-09-14] MEDS: MetroNIDAZOLE 500 MG/100 ML 500 MG/100 ML BAG IVPB SCH ×2 (16:01→23:28)
[2021-09-14] MEDS: Heparin 25,000UNIT/250ML 1/2NS 25,000 UNIT/250 ML IV.SOLN IVC SCH (16:02)
[2021-09-14] MEDS: D5% in 0.45% NACL 1,000 ML IVC SCH (16:51)
[2021-09-14 17:02] LABS: Eosinophils,Pleural Fluid 0 %
[2021-09-14 17:03] LABS: Basophils,Pleural Fluid 0 %
[2021-09-14] MEDS: Dexmedetomidine HCl 400 MCG/100 ML MLS IVC SCH (17:42)
[2021-09-14] MEDS: Chlorhexidine Rinse 15 ML MOUTHWASH MM SCH (20:31)
[2021-09-14] MEDS: traZODone 50 MG TABLET PO SCH (20:34)
[2021-09-15] MEDS: Artificial Tears SOLN 15 ML BOTTLE BOTH EYES SCH ×5 (01:12→20:13)
[2021-09-15] MEDS: Dexmedetomidine HCl 400 MCG/100 ML MLS IVC SCH ×2 (01:46→20:37)
[2021-09-15 02:26] LABS: Bacteria,Urine Few per hpf (None-Few); Bilirubin,Urine Negative (Negative); Blood,Urine Small (Negative); Budding Yeast,Urine Few per hpf (None Seen); Clarity,Urine Turbid (Clear); Color,Urine Yellow (Yellow); Glucose,Urine (UA) Normal (Normal); Hyaline Casts,Urine Few per lpf (None Seen); Ketones,Urine 10 mg/dL (Negative); Leukocyte Esterase,Urine Small (Negative); Mucus,Urine Few per lpf (None-Few); Nitrite,Urine Negative (Negative); Protein,Urine 100 mg/dL (Neg-Trace); Specific Gravity,Urine 1.027 (1.010-1.025); Squamous Epithelial Cell,Urine Few per hpf (None-Few); Urobilinogen,Urine Normal (Normal); WBC,Urine 15-30 per hpf (0-3)
[2021-09-15 04:16] LABS: ABG Base Excess 1 mEq/L (-2 to 3); ABG HCO3 24 mEq/L (21-27); ABG Oxygen Saturation 95 % (95-98); ABG PCO2 34 mmHg (35-45); ABG PH 7.46 pH Units (7.32-7.45); ABG PO2 70 mmHg (85-104); ABG TCO2 26 mEq/L (20-26); Blood Gas Modality CPAP/PS; Blood Gas Pressure Support 12 cm H2O
[2021-09-15 05:03] LABS: VBG Ionized Calcium 1.24 mmol/L (1.15-1.35)
[2021-09-15 05:18] LABS: Basophils % 0.2 %; Hematocrit 29.2 % (37.5-50.1); Hemoglobin 9.2 g/dL (12.9-16.9); Immature Granulocytes % 1.8 % (0-4); Lymphocytes # 0.5 K/mcL (0.6-4.6); Lymphocytes % 5.3 %; Mean Corpuscular HGB Conc 31.5 g/dL (31.6-35.5); Mean Corpuscular Hemoglobin 30.3 pg (28.0-33.3); Mean Corpuscular Volume 96.1 fL (83.0-100.0); Mean Platelet Volume 11.5 fL (9.4-12.4); Monocytes % 10.9 %; Neutrophils # 7.2 K/mcL (1.6-8.9); Nucleated Red Blood Cells 0.9 /100 WBC (0); Platelet Count 143 K/mcL (140-400); Red Blood Count 3.04 M/mcL (4.19-5.50); Red Cell Distribution Width 20.4 % (11.5-14.5); Segmented Neutrophils % 81.8 %; White Blood Count 8.8 K/mcL (4.3-11.1)
[2021-09-15 05:22] LABS: Albumin 2.1 g/dL (3.5-5.7); Albumin/Globulin Ratio 0.8 (1.1-2.2); Bilirubin,Total 0.6 mg/dL (0.3-1.0); Calcium 8.3 mg/dL (8.6-10.3); Globulin 2.8 g/dL (2.4-3.5); Magnesium 1.5 mg/dL (1.6-2.6); Phosphorous 1.7 mg/dL (2.7-4.5); Potassium 4.7 mEq/L (3.5-5.1); Total Protein 4.9 g/dL (6.4-8.9)
[2021-09-15] MEDS: Insulin LISPRO 300 UNITS/3 ML VIAL SUBQ SCH ×5 (05:45→20:13)
[2021-09-15] MEDS: D5% in 0.45% NACL 1,000 ML IVC SCH ×2 (06:20→20:09)
[2021-09-15] MEDS: Pantoprazole 40 MG VIAL IVP SCH (07:17)
[2021-09-15] MEDS: MetroNIDAZOLE 500 MG/100 ML 500 MG/100 ML BAG IVPB SCH ×3 (07:17→23:05)
[2021-09-15] MEDS: Finasteride 5 MG TABLET PO SCH (07:17)
[2021-09-15] MEDS: Chlorhexidine Rinse 15 ML MOUTHWASH MM SCH ×2 (07:17→20:10)
[2021-09-15] MEDS: Ranolazine 500 MG TAB.ER.12H PO SCH ×2 (07:55→20:10)
[2021-09-15] MEDS ORDERED: 0.9 % Sodium Chloride 500 ML IVC ONE ×2 (07:57→10:04)
[2021-09-15] MEDS: Aspirin 81 MG TAB.CHEW GTUBE SCH (08:02)
[2021-09-15] MEDS: Leptospermum Honey Paste 44 ML TUBE TP SCH ×2 (08:17→20:26)
[2021-09-15] MEDS: Norepinephrine 4 MG/254 ML IV.SOLN IVC SCH (09:52)
[2021-09-15] MEDS ORDERED: Albumin Human 5% 12.5 GM/250 ML IV.SOLN ONE (10:03)
[2021-09-15] MEDS ORDERED: 0.9 % Sodium Chloride 500 ML ONE (10:03)
[2021-09-15] MEDS ORDERED: Albumin Human 5% 12.5 GM/250 ML IV.SOLN IVPB ONE (10:04)
[2021-09-15 10:12] LABS: Hematocrit 27.8 % (37.5-50.1); Hemoglobin 8.8 g/dL (12.9-16.9)
[2021-09-15] MEDS: Cefepime HCl 2,000 MG in 0.9 % Sodium Chloride 10 ML IVP SCH ×2 (11:16→23:08)
[2021-09-15] MEDS: Albumin Human 5% 12.5 GM/250 ML IV.SOLN IVC SCH ×4 (11:17→22:28)
[2021-09-15] MEDS ORDERED: *HR* EPINEPHrine 1 MG/10 ML SYRINGE INTRATRACH PRN (12:36)
[2021-09-15 13:48] LABS: RBC,Peritoneal Fluid < 2000 RBC/mcL
[2021-09-15 14:22] LABS: Appearance of Peritoneal Fl CLEAR (Clear)
[2021-09-15 14:48] LABS: Basophils,Peritoneal Fluid 0 %; Eosinophils,Peritoneal Fluid 0 %
[2021-09-15 15:00] LABS: Amylase,Peritoneal Fluid < 10 Units/L (No Ref Range); Glucose,Peritoneal Fluid 183 mg/dL (No Ref Range); LDH,Peritoneal Fluid 82 Units/L (No Ref Range)
[2021-09-15] MEDS ORDERED: *HR* EPINEPHrine 1 MG/10 ML SYRINGE IVP ONE (15:44)
[2021-09-15] MEDS ORDERED: Norepinephrine 4 MG/254 ML in 0.9% Sodium Chloride IVC ONE (15:44)
[2021-09-15] MEDS: traZODone 50 MG TABLET PO SCH (20:10)
[2021-09-15] MEDS: FentaNYL (PF) 1,000 MCG/100 ML IV.SOLN IVC SCH (20:11)
[2021-09-16] MEDS: Artificial Tears SOLN 15 ML BOTTLE BOTH EYES SCH ×7 (00:07→23:26)
[2021-09-16] MEDS: Albumin Human 5% 12.5 GM/250 ML IV.SOLN IVC SCH ×2 (02:56→08:39)
[2021-09-16] MEDS: Insulin LISPRO 300 UNITS/3 ML VIAL SUBQ SCH ×7 (02:57→23:30)
[2021-09-16 03:49] LABS: Basophils % 0.2 %; Eosinophils # 0.1 K/mcL (0.0-0.6); Eosinophils % 0.7 %; Hematocrit 24.6 % (37.5-50.1); Immature Granulocytes % 1.9 % (0-4); Immature Platelets 5.2 % (1.1-6.1); Lymphocytes # 0.5 K/mcL (0.6-4.6); Lymphocytes % 5.5 %; Mean Corpuscular HGB Conc 32.5 g/dL (31.6-35.5); Mean Corpuscular Hemoglobin 30.5 pg (28.0-33.3); Mean Corpuscular Volume 93.9 fL (83.0-100.0); Mean Platelet Volume 10.3 fL (9.4-12.4); Monocytes # 0.8 K/mcL (0.0-1.3); Monocytes % 9.1 %; Neutrophils # 6.8 K/mcL (1.6-8.9); Nucleated Red Blood Cells 0.6 /100 WBC (0); Platelet Count 110 K/mcL (140-400); Red Blood Count 2.62 M/mcL (4.19-5.50); Red Cell Distribution Width 20.4 % (11.5-14.5); Segmented Neutrophils % 82.6 %; White Blood Count 8.2 K/mcL (4.3-11.1)
[2021-09-16 04:09] LABS: Albumin 2.6 g/dL (3.5-5.7); Albumin/Globulin Ratio 1.5 (1.1-2.2); Bilirubin,Total 0.7 mg/dL (0.3-1.0); Calcium 8.1 mg/dL (8.6-10.3); Globulin 1.7 g/dL (2.4-3.5); Magnesium 1.5 mg/dL (1.6-2.6); Phosphorous 1.7 mg/dL (2.7-4.5); Potassium 3.7 mEq/L (3.5-5.1); Total Protein 4.3 g/dL (6.4-8.9)
[2021-09-16 04:33] LABS: ABG Base Excess 0 mEq/L (-2 to 3); ABG HCO3 23 mEq/L (21-27); ABG Oxygen Saturation 99 % (95-98); ABG PCO2 29 mmHg (35-45); ABG PH 7.51 pH Units (7.32-7.45); ABG PO2 123 mmHg (85-104); ABG TCO2 24 mEq/L (20-26); Blood Gas VT 450 cc
[2021-09-16 04:36] LABS: VBG Ionized Calcium 1.16 mmol/L (1.15-1.35)
[2021-09-16] MEDS: Norepinephrine 4 MG/254 ML IV.SOLN IVC SCH ×2 (08:03→16:08)
[2021-09-16] MEDS: Heparin 25,000UNIT/250ML 1/2NS 25,000 UNIT/250 ML IV.SOLN IVC SCH (08:03)
[2021-09-16] MEDS: FentaNYL (PF) 1,000 MCG/100 ML IV.SOLN IVC SCH ×2 (08:04→23:30)
[2021-09-16] MEDS: MetroNIDAZOLE 500 MG/100 ML 500 MG/100 ML BAG IVPB SCH ×3 (08:39→23:21)
[2021-09-16] MEDS: Aspirin 81 MG TAB.CHEW GTUBE SCH (08:41)
[2021-09-16] MEDS: Chlorhexidine Rinse 15 ML MOUTHWASH MM SCH ×2 (08:41→20:44)
[2021-09-16] MEDS: Finasteride 5 MG TABLET PO SCH (08:41)
[2021-09-16] MEDS: Pantoprazole 40 MG VIAL IVP SCH (08:41)
[2021-09-16] MEDS: D5% in 0.45% NACL 1,000 ML IVC SCH ×2 (08:41→19:35)
[2021-09-16] MEDS: Leptospermum Honey Paste 44 ML TUBE TP SCH ×2 (08:41→20:42)
[2021-09-16] MEDS: Ranolazine 500 MG TAB.ER.12H PO SCH ×2 (08:42→19:35)
[2021-09-16] MEDS: Furosemide 40 MG TABLET PO SCH ×2 (10:44→17:15)
[2021-09-16] MEDS: Cefepime HCl 2,000 MG in 0.9 % Sodium Chloride 10 ML IVP SCH ×2 (12:21→23:22)
[2021-09-16] MEDS: *HR* Heparin 5,000 UNIT/ML VIAL SQ SCH ×2 (13:28→20:48)
[2021-09-16] MEDS: Albumin 25% 25gram/100mL 25 GM/100 ML IV.SOLN IVPB SCH ×2 (15:52→23:21)
[2021-09-16 18:25] LABS: Calcium 8.2 mg/dL (8.6-10.3); Magnesium 1.6 mg/dL (1.6-2.6); Potassium 3.7 mEq/L (3.5-5.1)
[2021-09-16] MEDS: Dexmedetomidine HCl 400 MCG/100 ML MLS IVC SCH (19:34)
[2021-09-16] MEDS: traZODone 50 MG TABLET PO SCH (19:35)
[2021-09-17] MEDS: Artificial Tears SOLN 15 ML BOTTLE BOTH EYES SCH ×6 (03:22→23:58)
[2021-09-17] MEDS: Insulin LISPRO 300 UNITS/3 ML VIAL SUBQ SCH ×6 (03:22→23:58)
[2021-09-17 03:50] LABS: VBG Ionized Calcium 1.12 mmol/L (1.15-1.35)
[2021-09-17 03:59] LABS: ABG Base Excess -2 mEq/L (-2 to 3); ABG HCO3 22 mEq/L (21-27); ABG Oxygen Saturation 97 % (95-98); ABG PCO2 30 mmHg (35-45); ABG PH 7.47 pH Units (7.32-7.45); ABG PO2 87 mmHg (85-104); ABG TCO2 23 mEq/L (20-26); Blood Gas VT 400 cc
[2021-09-17 04:05] LABS: Basophils % 0.1 %; Eosinophils # 0.1 K/mcL (0.0-0.6); Hematocrit 23.7 % (37.5-50.1); Hemoglobin 7.6 g/dL (12.9-16.9); Immature Granulocytes % 1.5 % (0-4); Immature Platelets 7.3 % (1.1-6.1); Lymphocytes # 0.5 K/mcL (0.6-4.6); Lymphocytes % 5.7 %; Mean Corpuscular HGB Conc 32.1 g/dL (31.6-35.5); Mean Corpuscular Hemoglobin 30.2 pg (28.0-33.3); Mean Platelet Volume 10.8 fL (9.4-12.4); Monocytes # 0.9 K/mcL (0.0-1.3); Monocytes % 9.4 %; Neutrophils # 7.6 K/mcL (1.6-8.9); Nucleated Red Blood Cells 0.3 /100 WBC (0); Platelet Count 98 K/mcL (140-400); Red Blood Count 2.52 M/mcL (4.19-5.50); Red Cell Distribution Width 20.5 % (11.5-14.5); Segmented Neutrophils % 82.3 %; White Blood Count 9.2 K/mcL (4.3-11.1)
[2021-09-17 04:22] LABS: Albumin 3.3 g/dL (3.5-5.7); Albumin/Globulin Ratio 2.1 (1.1-2.2); Bilirubin,Total 0.9 mg/dL (0.3-1.0); Calcium 8.4 mg/dL (8.6-10.3); Globulin 1.6 g/dL (2.4-3.5); Magnesium 2.1 mg/dL (1.6-2.6); Phosphorous 2.3 mg/dL (2.7-4.5); Potassium 3.8 mEq/L (3.5-5.1); Total Protein 4.9 g/dL (6.4-8.9)
[2021-09-17] MEDS ORDERED: Potassium Chloride Elixir 20 MEQ/15 ML UDC GTUBE ONE (04:37)
[2021-09-17] MEDS: *HR* Heparin 5,000 UNIT/ML VIAL SQ SCH ×2 (05:08→14:47)
[2021-09-17] MEDS: Chlorhexidine Rinse 15 ML MOUTHWASH MM SCH ×2 (08:24→20:21)
[2021-09-17] MEDS: Albumin 25% 25gram/100mL 25 GM/100 ML IV.SOLN IVPB SCH ×2 (08:25→16:07)
[2021-09-17] MEDS: MetroNIDAZOLE 500 MG/100 ML 500 MG/100 ML BAG IVPB SCH ×2 (08:25→16:07)
[2021-09-17] MEDS: Finasteride 5 MG TABLET PO SCH (08:25)
[2021-09-17] MEDS: Pantoprazole 40 MG VIAL IVP SCH (08:25)
[2021-09-17] MEDS: Ranolazine 500 MG TAB.ER.12H PO SCH ×2 (08:26→19:17)
[2021-09-17] MEDS: Furosemide 40 MG TABLET PO SCH ×2 (08:26→16:07)
[2021-09-17] MEDS: Leptospermum Honey Paste 44 ML TUBE TP SCH ×2 (08:26→19:17)
[2021-09-17] MEDS: Aspirin 81 MG TAB.CHEW GTUBE SCH (08:26)
[2021-09-17] MEDS: Norepinephrine 4 MG/254 ML IV.SOLN IVC SCH ×2 (10:20→23:59)
[2021-09-17] MEDS ORDERED: *HR* Midazolam HCl 2 MG/2 ML VIAL IVP ONE (12:05)
[2021-09-17] MEDS ORDERED: *HR* FentaNYL (PF) 100 MCG/2 ML VIAL IVP ONE (12:06)
[2021-09-17] MEDS ORDERED: Lidocaine -MPF 1% 5 ML AMPUL ONE (12:09)
[2021-09-17] MEDS: Cefepime HCl 1,000 MG in 0.9 % Sodium Chloride 10 ML IVP SCH (12:56)
[2021-09-17] MEDS: Dexmedetomidine HCl 400 MCG/100 ML MLS IVC SCH (13:17)
[2021-09-17 13:41] LABS: INR 2.4; Prothrombin Time 26.2 Seconds (9.4-12.1)
[2021-09-17 13:43] LABS: Activated Partial Thrombo Time 48.8 Seconds (26.0-36.0)
[2021-09-17 13:45] LABS: Fluid Source for Albumin PERITONEAL
[2021-09-17] MEDS: FentaNYL (PF) 1,000 MCG/100 ML IV.SOLN IVC SCH (19:15)
[2021-09-17] MEDS: traZODone 50 MG TABLET PO SCH (19:15)
[2021-09-17 22:22] LABS: Prothrombin Time 22.7 Seconds (9.4-12.1)
[2021-09-17 22:24] LABS: Activated Partial Thrombo Time 48.5 Seconds (26.0-36.0)
[2021-09-17] MEDS ORDERED: 0.9 % Sodium Chloride 250 ML IVC SCH (22:45)
[2021-09-18] MEDS: MetroNIDAZOLE 500 MG/100 ML 500 MG/100 ML BAG IVPB SCH ×2 (00:01→07:33)
[2021-09-18] MEDS: Albumin 25% 25gram/100mL 25 GM/100 ML IV.SOLN IVPB SCH ×4 (00:01→23:09)
[2021-09-18] MEDS: Cefepime HCl 1,000 MG in 0.9 % Sodium Chloride 10 ML IVP SCH (00:01)
[2021-09-18] MEDS: Artificial Tears SOLN 15 ML BOTTLE BOTH EYES SCH ×6 (04:35→23:09)
[2021-09-18] MEDS: Insulin LISPRO 300 UNITS/3 ML VIAL SUBQ SCH ×6 (04:35→23:10)
[2021-09-18 04:38] LABS: ABG Base Excess -1 mEq/L (-2 to 3); ABG HCO3 22 mEq/L (21-27); ABG Oxygen Saturation 99 % (95-98); ABG PCO2 28 mmHg (35-45); ABG PO2 109 mmHg (85-104); ABG TCO2 23 mEq/L (20-26); Blood Gas Modality ASSIST CONTROL; Blood Gas VT 400 cc
[2021-09-18 05:12] LABS: Immature Granulocytes % 1.1 % (0-4); Monocytes % 3.6 %; Nucleated Red Blood Cells 0.5 /100 WBC (0)
[2021-09-18 05:13] LABS: Basophils % 0.2 %; Eosinophils # 0.1 K/mcL (0.0-0.6); Hematocrit 23.2 % (37.5-50.1); Hemoglobin 7.5 g/dL (12.9-16.9); Immature Platelets 7.4 % (1.1-6.1); Lymphocytes # 0.1 K/mcL (0.6-4.6); Lymphocytes % 1.6 %; Mean Corpuscular HGB Conc 32.3 g/dL (31.6-35.5); Mean Corpuscular Hemoglobin 30.7 pg (28.0-33.3); Mean Corpuscular Volume 95.1 fL (83.0-100.0); Mean Platelet Volume 11.9 fL (9.4-12.4); Monocytes # 0.2 K/mcL (0.0-1.3); Neutrophils # 5.8 K/mcL (1.6-8.9); Red Blood Count 2.44 M/mcL (4.19-5.50); Red Cell Distribution Width 21.1 % (11.5-14.5); Segmented Neutrophils % 92.5 %; White Blood Count 6.3 K/mcL (4.3-11.1)
[2021-09-18 05:17] LABS: Platelet Count 71 K/mcL (140-400)
[2021-09-18 05:29] LABS: INR 1.8; Prothrombin Time 20.5 Seconds (9.4-12.1)
[2021-09-18 05:56] LABS: Calcium 8.4 mg/dL (8.6-10.3); Magnesium 1.8 mg/dL (1.6-2.6); Potassium 3.7 mEq/L (3.5-5.1)
[2021-09-18] MEDS ORDERED: Potassium Chloride Elixir 20 MEQ/15 ML UDC GTUBE ONE (06:32)
[2021-09-18] MEDS: Dexmedetomidine HCl 400 MCG/100 ML MLS IVC SCH ×2 (07:03→23:10)
[2021-09-18] MEDS: Leptospermum Honey Paste 44 ML TUBE TP SCH ×2 (07:37→19:39)
[2021-09-18] MEDS: Furosemide 40 MG TABLET PO SCH (07:37)
[2021-09-18] MEDS: Aspirin 81 MG TAB.CHEW GTUBE SCH (07:37)
[2021-09-18] MEDS: Chlorhexidine Rinse 15 ML MOUTHWASH MM SCH ×2 (07:37→19:34)
[2021-09-18] MEDS: Finasteride 5 MG TABLET PO SCH (07:37)
[2021-09-18] MEDS: Pantoprazole 40 MG VIAL IVP SCH (07:38)
[2021-09-18] MEDS: Ranolazine 500 MG TAB.ER.12H PO SCH ×2 (07:54→19:36)
[2021-09-18] MEDS ORDERED: *HR* FentaNYL (PF) 100 MCG/2 ML VIAL ONE (11:16)
[2021-09-18] MEDS ORDERED: *HR* Midazolam HCl 5 MG/5 ML VIAL IVP ONE (11:17)
[2021-09-18] MEDS ORDERED: Albumin 25% 25gram/100mL 25 GM/100 ML IV.SOLN IVPB ONE (11:18)
[2021-09-18] MEDS ORDERED: Lidocaine 1% 20 ML MDV TH ONE (11:20)
[2021-09-18] MEDS ORDERED: Lidocaine -MPF 1% 5 ML AMPUL ONE ×2 (11:24)
[2021-09-18] MEDS ORDERED: *HR* Midazolam HCl 2 MG/2 ML VIAL IVP ONE (11:39)
[2021-09-18] MEDS ORDERED: *HR* FentaNYL (PF) 100 MCG/2 ML VIAL IVP ONE (11:39)
[2021-09-18] MEDS ORDERED: Ampicillin/Sulbactam 3,000 MG in 0.9 % Sodium Chloride Mini Bag 100 ML IVPB SCH (12:00)
[2021-09-18] MEDS: Ampicillin/Sulbactam 1,500 MG in 0.9 % Sodium Chloride Mini Bag 100 ML IVPB SCH ×2 (17:02→23:10)
[2021-09-18] MEDS: FentaNYL (PF) 1,000 MCG/100 ML IV.SOLN IVC SCH (19:33)
[2021-09-18] MEDS: traZODone 50 MG TABLET PO SCH (19:34)
[2021-09-18] MEDS: Docusate Oral Soln 100 MG/10 ML UDC GTUBE SCH (19:38)
[2021-09-18] MEDS: Norepinephrine 4 MG/254 ML IV.SOLN IVC SCH (19:39)
[2021-09-19] MEDS: Artificial Tears SOLN 15 ML BOTTLE BOTH EYES SCH ×5 (03:24→20:30)
[2021-09-19] MEDS: Insulin LISPRO 300 UNITS/3 ML VIAL SUBQ SCH ×6 (03:24→20:30)
[2021-09-19 04:01] LABS: Basophils % 0.1 %; Eosinophils # 0.1 K/mcL (0.0-0.6); Eosinophils % 1.3 %; Hematocrit 22.2 % (37.5-50.1); Hemoglobin 7.2 g/dL (12.9-16.9); Immature Granulocytes % 0.8 % (0-4); Lymphocytes # 0.4 K/mcL (0.6-4.6); Lymphocytes % 4.8 %; Mean Corpuscular HGB Conc 32.4 g/dL (31.6-35.5); Mean Corpuscular Hemoglobin 30.3 pg (28.0-33.3); Mean Corpuscular Volume 93.3 fL (83.0-100.0); Mean Platelet Volume 12.1 fL (9.4-12.4); Monocytes % 12.6 %; Neutrophils # 6.2 K/mcL (1.6-8.9); Nucleated Red Blood Cells 0.3 /100 WBC (0); Platelet Count 114 K/mcL (140-400); Red Blood Count 2.38 M/mcL (4.19-5.50); Red Cell Distribution Width 21.2 % (11.5-14.5); Segmented Neutrophils % 80.4 %; White Blood Count 7.7 K/mcL (4.3-11.1)
[2021-09-19 04:16] LABS: Calcium 8.8 mg/dL (8.6-10.3); Magnesium 2.1 mg/dL (1.6-2.6); Phosphorous 2.6 mg/dL (2.7-4.5); Potassium 3.5 mEq/L (3.5-5.1)
[2021-09-19 04:26] LABS: VBG Ionized Calcium 1.12 mmol/L (1.15-1.35)
[2021-09-19 04:34] LABS: ABG Base Excess 1 mEq/L (-2 to 3); ABG HCO3 23 mEq/L (21-27); ABG Oxygen Saturation 98 % (95-98); ABG PCO2 24 mmHg (35-45); ABG PH 7.58 pH Units (7.32-7.45); ABG PO2 88 mmHg (85-104); ABG TCO2 23 mEq/L (20-26); Blood Gas Modality ASSIST CONTROL; Blood Gas VT 400 cc
[2021-09-19] MEDS: Ampicillin/Sulbactam 1,500 MG in 0.9 % Sodium Chloride Mini Bag 100 ML IVPB SCH ×2 (05:21→12:10)
[2021-09-19] MEDS ORDERED: Potassium Chloride Elixir 20 MEQ/15 ML UDC GTUBE ONE (06:36)
[2021-09-19] MEDS: Albumin 25% 25gram/100mL 25 GM/100 ML IV.SOLN IVPB SCH ×2 (09:03→16:24)
[2021-09-19] MEDS: Chlorhexidine Rinse 15 ML MOUTHWASH MM SCH ×2 (09:04→20:31)
[2021-09-19] MEDS: Ranolazine 500 MG TAB.ER.12H PO SCH ×2 (09:04→20:32)
[2021-09-19] MEDS: Aspirin 81 MG TAB.CHEW GTUBE SCH (09:04)
[2021-09-19] MEDS: Pantoprazole 40 MG VIAL IVP SCH (09:04)
[2021-09-19] MEDS: Docusate Oral Soln 100 MG/10 ML UDC GTUBE SCH ×2 (09:04→20:31)
[2021-09-19] MEDS: Finasteride 5 MG TABLET PO SCH (09:05)
[2021-09-19] MEDS: Norepinephrine 4 MG/254 ML IV.SOLN IVC SCH (16:22)
[2021-09-19] MEDS: Leptospermum Honey Paste 44 ML TUBE TP SCH ×2 (16:22→20:32)
[2021-09-19] MEDS: FentaNYL (PF) 1,000 MCG/100 ML IV.SOLN IVC SCH (16:22)
[2021-09-19] MEDS: Dexmedetomidine HCl 400 MCG/100 ML MLS IVC SCH (17:55)
[2021-09-19] MEDS: traZODone 50 MG TABLET PO SCH (20:31)
[2021-09-19 21:45] LABS: ABG Base Excess -1 mEq/L (-2 to 3); ABG HCO3 25 mEq/L (21-27); ABG Oxygen Saturation 99 % (95-98); ABG PCO2 50 mmHg (35-45); ABG PH 7.31 pH Units (7.32-7.45); ABG PO2 130 mmHg (85-104); ABG TCO2 27 mEq/L (20-26)
[2021-09-20] MEDS: Artificial Tears SOLN 15 ML BOTTLE BOTH EYES SCH ×6 (00:31→21:57)
[2021-09-20] MEDS: Albumin 25% 25gram/100mL 25 GM/100 ML IV.SOLN IVPB SCH ×3 (00:35→15:52)
[2021-09-20] MEDS: Ampicillin/Sulbactam 1,500 MG in 0.9 % Sodium Chloride Mini Bag 100 ML IVPB SCH ×2 (00:36→11:00)
[2021-09-20] MEDS: Insulin LISPRO 300 UNITS/3 ML VIAL SUBQ SCH ×6 (00:36→21:56)
[2021-09-20] MEDS: Norepinephrine 4 MG/254 ML IV.SOLN IVC SCH (00:37)
[2021-09-20 05:42] LABS: Basophils % 0.1 %; Eosinophils % 0.2 %; Hematocrit 22.6 % (37.5-50.1); Hemoglobin 7.2 g/dL (12.9-16.9); Immature Granulocytes % 0.7 % (0-4); Lymphocytes # 0.4 K/mcL (0.6-4.6); Lymphocytes % 4.7 %; Mean Corpuscular HGB Conc 31.9 g/dL (31.6-35.5); Mean Corpuscular Volume 94.2 fL (83.0-100.0); Mean Platelet Volume 12.4 fL (9.4-12.4); Monocytes # 0.9 K/mcL (0.0-1.3); Monocytes % 10.4 %; Neutrophils # 7.3 K/mcL (1.6-8.9); Platelet Count 118 K/mcL (140-400); Red Cell Distribution Width 21.2 % (11.5-14.5); Segmented Neutrophils % 83.9 %; White Blood Count 8.7 K/mcL (4.3-11.1)
[2021-09-20 06:12] LABS: Calcium 9.2 mg/dL (8.6-10.3); Potassium 4.2 mEq/L (3.5-5.1)
[2021-09-20] MEDS: Chlorhexidine Rinse 15 ML MOUTHWASH MM SCH ×2 (08:24→21:56)
[2021-09-20] MEDS: Docusate Oral Soln 100 MG/10 ML UDC GTUBE SCH ×2 (08:25→21:56)
[2021-09-20] MEDS: Pantoprazole 40 MG VIAL IVP SCH (08:25)
[2021-09-20] MEDS: Ranolazine 500 MG TAB.ER.12H PO SCH ×2 (08:25→21:56)
[2021-09-20] MEDS: Aspirin 81 MG TAB.CHEW GTUBE SCH (08:25)
[2021-09-20] MEDS: Finasteride 5 MG TABLET PO SCH (08:25)
[2021-09-20] MEDS ORDERED: 0.9 % Sodium Chloride 250 ML IVC PRN (10:18)
[2021-09-20] MEDS ORDERED: *HR* Heparin 10,000 UNIT/10 ML VIAL IV PRN (10:25)
[2021-09-20] MEDS ORDERED: 0.9 % Sodium Chloride 1,000 ML PRIME SCH (10:30)
[2021-09-20] MEDS: Dexmedetomidine HCl 400 MCG/100 ML MLS IVC SCH (10:38)
[2021-09-20] MEDS: FentaNYL (PF) 1,000 MCG/100 ML IV.SOLN IVC SCH (10:38)
[2021-09-20 11:21] LABS: Hepatitis B Surface Antigen Nonreactive (Nonreactive)
[2021-09-20] MEDS ORDERED: *HR* Heparin 5,000 UNIT/ML VIAL ONE (12:25)
[2021-09-20] MEDS: Leptospermum Honey Paste 44 ML TUBE TP SCH ×2 (13:05→21:57)
[2021-09-20 18:37] LABS: Hepatitis B Surface Antibody 10.59 mIU/mL
[2021-09-20] MEDS: traZODone 50 MG TABLET PO SCH (21:56)
[2021-09-21] MEDS: Albumin 25% 25gram/100mL 25 GM/100 ML IV.SOLN IVPB SCH ×3 (02:26→23:04)
[2021-09-21] MEDS: Ampicillin/Sulbactam 1,500 MG in 0.9 % Sodium Chloride Mini Bag 100 ML IVPB SCH ×2 (02:27→12:17)
[2021-09-21] MEDS: Artificial Tears SOLN 15 ML BOTTLE BOTH EYES SCH ×4 (02:28→11:38)
[2021-09-21] MEDS: Insulin LISPRO 300 UNITS/3 ML VIAL SUBQ SCH ×6 (02:28→23:18)
[2021-09-21] MEDS: Dexmedetomidine HCl 400 MCG/100 ML MLS IVC SCH (04:40)
[2021-09-21 05:20] LABS: Potassium 4.2 mEq/L (3.5-5.1)
[2021-09-21] MEDS: Pantoprazole 40 MG VIAL IVP SCH (09:28)
[2021-09-21] MEDS: Chlorhexidine Rinse 15 ML MOUTHWASH MM SCH ×2 (09:28→20:29)
[2021-09-21] MEDS: Docusate Oral Soln 100 MG/10 ML UDC GTUBE SCH ×2 (09:29→20:29)
[2021-09-21] MEDS: Finasteride 5 MG TABLET PO SCH (09:30)
[2021-09-21] MEDS: Ranolazine 500 MG TAB.ER.12H PO SCH ×2 (09:30→20:28)
[2021-09-21] MEDS: Aspirin 81 MG TAB.CHEW GTUBE SCH (09:30)
[2021-09-21] MEDS: Leptospermum Honey Paste 44 ML TUBE TP SCH (09:31)
[2021-09-21] MEDS ORDERED: Artificial Tears SOLN 15 ML BOTTLE BOTH EYES PRN (16:27)
[2021-09-21] MEDS ORDERED: Dextrose 4 GM Chewable Tablets PO PRN ×2 (16:27)
[2021-09-21] MEDS ORDERED: Naloxone 0.4 MG/ML INJ IVP PRN (16:27)
[2021-09-21] MEDS ORDERED: D5% in Water 1,000 ML IVC PRN (16:27)
[2021-09-21] MEDS ORDERED: *HR* Dextrose 50 % in Water (Syg) 50 ML SYRINGE IVP PRN (16:27)
[2021-09-21] MEDS ORDERED: Acetaminophen 325 MG TABLET PO PRN (16:27)
[2021-09-21] MEDS: traZODone 50 MG TABLET PO SCH (20:29)
[2021-09-22] MEDS ORDERED: Ampicillin/Sulbactam 1,500 MG in 0.9 % Sodium Chloride Mini Bag 100 ML IVPB SCH
[2021-09-22 01:52] LABS: VBG Ionized Calcium 1.21 mmol/L (1.15-1.35)
[2021-09-22 01:57] LABS: Eosinophils % 0.5 %; Hematocrit 22.1 % (37.5-50.1); Immature Granulocytes % 1.1 % (0-4); Lymphocytes # 0.4 K/mcL (0.6-4.6); Lymphocytes % 4.4 %; Mean Corpuscular HGB Conc 31.7 g/dL (31.6-35.5); Mean Corpuscular Hemoglobin 30.6 pg (28.0-33.3); Mean Corpuscular Volume 96.5 fL (83.0-100.0); Monocytes # 0.7 K/mcL (0.0-1.3); Monocytes % 8.7 %; Neutrophils # 7.1 K/mcL (1.6-8.9); Nucleated Red Blood Cells 0.4 /100 WBC (0); Platelet Count 144 K/mcL (140-400); Red Blood Count 2.29 M/mcL (4.19-5.50); Red Cell Distribution Width 22.3 % (11.5-14.5); Segmented Neutrophils % 85.3 %; White Blood Count 8.3 K/mcL (4.3-11.1)
[2021-09-22 02:16] LABS: Albumin 4.4 g/dL (3.5-5.7); Bilirubin,Total 1.9 mg/dL (0.3-1.0); Calcium 9.2 mg/dL (8.6-10.3); Globulin 1.1 g/dL (2.4-3.5); Phosphorous 4.9 mg/dL (2.7-4.5); Potassium 4.6 mEq/L (3.5-5.1); Total Protein 5.5 g/dL (6.4-8.9)
[2021-09-22] MEDS: Insulin LISPRO 300 UNITS/3 ML VIAL SUBQ SCH ×6 (03:24→23:26)
[2021-09-22] MEDS ORDERED: Pantoprazole 40 MG VIAL IVP SCH (09:00)
[2021-09-22] MEDS ORDERED: 0.9 % Sodium Chloride 250 ML IVC PRN (09:45)
[2021-09-22] MEDS ORDERED: 0.9 % Sodium Chloride 1,000 ML PRIME SCH (09:45)
[2021-09-22] MEDS ORDERED: *HR* Heparin 10,000 UNIT/10 ML VIAL IV PRN (09:45)
[2021-09-22] MEDS: Finasteride 5 MG TABLET PO SCH (12:19)
[2021-09-22] MEDS: Chlorhexidine Rinse 15 ML MOUTHWASH MM SCH ×2 (12:19→19:55)
[2021-09-22] MEDS: Docusate Oral Soln 100 MG/10 ML UDC GTUBE SCH ×2 (12:19→19:52)
[2021-09-22] MEDS: Aspirin 81 MG TAB.CHEW GTUBE SCH (12:19)
[2021-09-22] MEDS: Ranolazine 500 MG TAB.ER.12H PO SCH ×2 (12:21→19:52)
[2021-09-22] MEDS: Albumin 25% 25gram/100mL 25 GM/100 ML IV.SOLN IVPB SCH ×3 (12:22→19:55)
[2021-09-22] MEDS: traZODone 50 MG TABLET PO SCH (19:52)
[2021-09-23] MEDS: Insulin LISPRO 300 UNITS/3 ML VIAL SUBQ SCH ×5 (04:51→20:09)
[2021-09-23] MEDS: Albumin 25% 25gram/100mL 25 GM/100 ML IV.SOLN IVPB SCH ×3 (05:10→20:06)
[2021-09-23] MEDS: Ranolazine 500 MG TAB.ER.12H PO SCH ×2 (10:53→20:05)
[2021-09-23] MEDS: Chlorhexidine Rinse 15 ML MOUTHWASH MM SCH ×2 (10:53→20:05)
[2021-09-23] MEDS: Finasteride 5 MG TABLET PO SCH (10:53)
[2021-09-23] MEDS: Docusate Oral Soln 100 MG/10 ML UDC GTUBE SCH ×2 (10:53→20:05)
[2021-09-23] MEDS: Aspirin 81 MG TAB.CHEW GTUBE SCH (10:54)
[2021-09-23 13:16] LABS: VBG Ionized Calcium 1.34 mmol/L (1.15-1.35)
[2021-09-23 13:29] LABS: INR 1.6
[2021-09-23 13:31] LABS: Activated Partial Thrombo Time 68.2 Seconds (26.0-36.0)
[2021-09-23 13:35] LABS: Albumin 3.8 g/dL (3.5-5.7); Albumin/Globulin Ratio 3.5 (1.1-2.2); Bilirubin,Direct 1.1 mg/dL (0.0-0.2); Bilirubin,Indirect 0.6 mg/dL (0.0-1.0); Bilirubin,Total 1.7 mg/dL (0.3-1.0); Calcium 7.3 mg/dL (8.6-10.3); Globulin 1.1 g/dL (2.4-3.5); Magnesium 1.6 mg/dL (1.6-2.6); Phosphorous 4.7 mg/dL (2.7-4.5); Potassium 4.8 mEq/L (3.5-5.1); Total Protein 4.9 g/dL (6.4-8.9); Troponin I 0.07 ng/mL (< 0.04)
[2021-09-23 15:22] LABS: ABG Base Excess -5 mEq/L (-2 to 3); ABG HCO3 20 mEq/L (21-27); ABG Oxygen Saturation 99 % (95-98); ABG PCO2 37 mmHg (35-45); ABG PH 7.35 pH Units (7.32-7.45); ABG PO2 153 mmHg (85-104); ABG TCO2 21 mEq/L (20-26); Blood Gas Modality ASSIST CONTROL; Blood Gas VT 500 cc
[2021-09-23] MEDS: Artificial Tears SOLN 15 ML BOTTLE BOTH EYES SCH ×2 (15:55→20:10)
[2021-09-23] MEDS: Pantoprazole 40 MG VIAL IVP SCH (15:56)
[2021-09-23 18:36] LABS: Hemoglobin 6.7 g/dL (12.9-16.9); Mean Platelet Volume 11.1 fL (9.4-12.4)
[2021-09-23 18:40] LABS: Immature Granulocytes % 1.2 % (0-4); Lymphocytes # 0.4 K/mcL (0.6-4.6); Lymphocytes % 4.2 %; Mean Corpuscular HGB Conc 31.9 g/dL (31.6-35.5); Mean Corpuscular Hemoglobin 30.9 pg (28.0-33.3); Mean Corpuscular Volume 96.8 fL (83.0-100.0); Monocytes # 0.9 K/mcL (0.0-1.3); Monocytes % 9.7 %; Neutrophils # 7.7 K/mcL (1.6-8.9); Nucleated Red Blood Cells 0.8 /100 WBC (0); Platelet Count 148 K/mcL (140-400); Red Blood Count 2.17 M/mcL (4.19-5.50); Red Cell Distribution Width 22.5 % (11.5-14.5); Segmented Neutrophils % 84.9 %; White Blood Count 9.1 K/mcL (4.3-11.1)
[2021-09-23] MEDS: traZODone 50 MG TABLET PO SCH (20:06)
[2021-09-24] MEDS: Artificial Tears SOLN 15 ML BOTTLE BOTH EYES SCH ×7 (00:08→23:25)
[2021-09-24] MEDS: Insulin LISPRO 300 UNITS/3 ML VIAL SUBQ SCH ×5 (00:09→23:24)
[2021-09-24] MEDS: Albumin 25% 25gram/100mL 25 GM/100 ML IV.SOLN IVPB SCH ×3 (04:00→19:35)
[2021-09-24 04:08] LABS: Basophils % 0.1 %; Hematocrit 20.2 % (37.5-50.1); Hemoglobin 6.6 g/dL (12.9-16.9); Immature Granulocytes % 0.7 % (0-4); Lymphocytes # 0.3 K/mcL (0.6-4.6); Lymphocytes % 3.7 %; Mean Corpuscular HGB Conc 32.7 g/dL (31.6-35.5); Mean Corpuscular Hemoglobin 30.8 pg (28.0-33.3); Mean Corpuscular Volume 94.4 fL (83.0-100.0); Mean Platelet Volume 11.6 fL (9.4-12.4); Monocytes # 0.6 K/mcL (0.0-1.3); Monocytes % 6.7 %; Neutrophils # 7.9 K/mcL (1.6-8.9); Nucleated Red Blood Cells 0.7 /100 WBC (0); Platelet Count 153 K/mcL (140-400); Red Blood Count 2.14 M/mcL (4.19-5.50); Red Cell Distribution Width 22.2 % (11.5-14.5); Segmented Neutrophils % 88.8 %; White Blood Count 8.9 K/mcL (4.3-11.1)
[2021-09-24 04:24] LABS: VBG Ionized Calcium 1.17 mmol/L (1.15-1.35)
[2021-09-24 04:40] LABS: ABG Base Excess -4 mEq/L (-2 to 3); ABG HCO3 19 mEq/L (21-27); ABG Oxygen Saturation 95 % (95-98); ABG PCO2 27 mmHg (35-45); ABG PH 7.47 pH Units (7.32-7.45); ABG PO2 69 mmHg (85-104); ABG TCO2 20 mEq/L (20-26); Blood Gas VT 500 cc
[2021-09-24 04:40] LABS: Albumin 4.4 g/dL (3.5-5.7); Albumin/Globulin Ratio 3.7 (1.1-2.2); Bilirubin,Direct 2.2 mg/dL (0.0-0.2); Bilirubin,Indirect 1.2 mg/dL (0.0-1.0); Bilirubin,Total 3.4 mg/dL (0.3-1.0); Calcium 9.7 mg/dL (8.6-10.3); Globulin 1.2 g/dL (2.4-3.5); Potassium 4.7 mEq/L (3.5-5.1); Total Protein 5.6 g/dL (6.4-8.9)
[2021-09-24] MEDS: Aspirin 81 MG TAB.CHEW GTUBE SCH (08:37)
[2021-09-24] MEDS: Chlorhexidine Rinse 15 ML MOUTHWASH MM SCH ×2 (08:37→19:35)
[2021-09-24] MEDS: Docusate Oral Soln 100 MG/10 ML UDC GTUBE SCH ×2 (08:37→19:35)
[2021-09-24] MEDS: Pantoprazole 40 MG VIAL IVP SCH (08:38)
[2021-09-24] MEDS: Finasteride 5 MG TABLET PO SCH (08:38)
[2021-09-24] MEDS: Ranolazine 500 MG TAB.ER.12H PO SCH ×2 (08:38→19:40)
[2021-09-24] MEDS: Cefepime HCl 1,000 MG in 0.9 % Sodium Chloride 10 ML IVP SCH (17:34)
[2021-09-24 18:20] LABS: Hematocrit 19.5 % (37.5-50.1); Hemoglobin 6.5 g/dL (12.9-16.9); Mean Corpuscular HGB Conc 33.3 g/dL (31.6-35.5); Mean Corpuscular Hemoglobin 31.1 pg (28.0-33.3); Mean Corpuscular Volume 93.3 fL (83.0-100.0); Mean Platelet Volume 10.9 fL (9.4-12.4); Platelet Count 152 K/mcL (140-400); Red Blood Count 2.09 M/mcL (4.19-5.50); Red Cell Distribution Width 22.1 % (11.5-14.5); White Blood Count 9.3 K/mcL (4.3-11.1)
[2021-09-24 18:36] LABS: Calcium 9.8 mg/dL (8.6-10.3); Magnesium 2.1 mg/dL (1.6-2.6); Phosphorous 4.8 mg/dL (2.7-4.5); Potassium 4.6 mEq/L (3.5-5.1)
[2021-09-24] MEDS: Leptospermum Honey Gel 44 ML TUBE TP SCH (19:39)
[2021-09-24] MEDS: traZODone 50 MG TABLET PO SCH (19:40)
[2021-09-25] MEDS: Albumin 25% 25gram/100mL 25 GM/100 ML IV.SOLN IVPB SCH (04:01)
[2021-09-25] MEDS: Artificial Tears SOLN 15 ML BOTTLE BOTH EYES SCH ×4 (04:03→16:21)
[2021-09-25 04:13] LABS: ABG Base Excess -3 mEq/L (-2 to 3); ABG HCO3 21 mEq/L (21-27); ABG Oxygen Saturation 98 % (95-98); ABG PCO2 32 mmHg (35-45); ABG PH 7.42 pH Units (7.32-7.45); ABG PO2 99 mmHg (85-104); ABG TCO2 22 mEq/L (20-26); Blood Gas VT 450 cc
[2021-09-25 04:33] LABS: Eosinophils % 0.1 %; Hematocrit 19.6 % (37.5-50.1); Hemoglobin 6.5 g/dL (12.9-16.9); Immature Granulocytes % 0.8 % (0-4); Lymphocytes # 0.3 K/mcL (0.6-4.6); Lymphocytes % 3.6 %; Mean Corpuscular HGB Conc 33.2 g/dL (31.6-35.5); Mean Corpuscular Volume 93.3 fL (83.0-100.0); Mean Platelet Volume 11.9 fL (9.4-12.4); Monocytes # 0.6 K/mcL (0.0-1.3); Monocytes % 6.6 %; Neutrophils # 8.2 K/mcL (1.6-8.9); Nucleated Red Blood Cells 0.8 /100 WBC (0); Platelet Count 156 K/mcL (140-400); Red Cell Distribution Width 21.9 % (11.5-14.5); Segmented Neutrophils % 88.9 %; White Blood Count 9.3 K/mcL (4.3-11.1)
[2021-09-25 04:54] LABS: Calcium 9.8 mg/dL (8.6-10.3); Magnesium 2.2 mg/dL (1.6-2.6); Phosphorous 4.9 mg/dL (2.7-4.5); Potassium 4.7 mEq/L (3.5-5.1)
[2021-09-25] MEDS: Cefepime HCl 1,000 MG in 0.9 % Sodium Chloride 10 ML IVP SCH (05:37)
[2021-09-25] MEDS: Insulin LISPRO 300 UNITS/3 ML VIAL SUBQ SCH ×3 (05:37→18:32)
[2021-09-25] MEDS: Chlorhexidine Rinse 15 ML MOUTHWASH MM SCH (08:10)
[2021-09-25] MEDS: Docusate Oral Soln 100 MG/10 ML UDC GTUBE SCH (08:10)
[2021-09-25] MEDS: Pantoprazole 40 MG VIAL IVP SCH (08:11)
[2021-09-25] MEDS: Aspirin 81 MG TAB.CHEW GTUBE SCH (08:12)
[2021-09-25] MEDS: Finasteride 5 MG TABLET PO SCH (08:12)
[2021-09-25] MEDS: Leptospermum Honey Gel 44 ML TUBE TP SCH (08:12)
[2021-09-25] MEDS: Ranolazine 500 MG TAB.ER.12H PO SCH (08:12)
[2021-09-25] MEDS ORDERED: 0.9 % Sodium Chloride 250 ML IVC PRN (08:30)
[2021-09-25] MEDS ORDERED: *HR* Heparin 10,000 UNIT/10 ML VIAL IV PRN (08:30)
[2021-09-25] MEDS ORDERED: *HR* LORazepam 2 MG/ML VIAL IVP ONE ×2 (11:46→12:05)
[2021-09-25] MEDS ORDERED: *HR* LORazepam 2 MG/ML VIAL ONE (12:06)
[2021-09-25] MEDS ORDERED: Valproic Acid INJ 1,000 MG in 0.9 % Sodium Chloride 100 ML IVPB ONE (12:30)
[2021-09-25] MEDS ORDERED: Cefepime HCl 1,000 MG in 0.9 % Sodium Chloride 10 ML IVP SCH (18:00)
[2021-09-25] MEDS ORDERED: *HR* FentaNYL (PF) 100 MCG/2 ML VIAL IVP PRN (19:42)
[2021-09-26] MEDS ORDERED: *HR* LORazepam 2 MG/ML VIAL IVP PRN ×2 (00:36→08:44)
[2021-09-26] MEDS ORDERED: *HR* FentaNYL (PF) 100 MCG/2 ML VIAL IVP PRN (08:44)
[2021-09-26] MEDS: levETIRAcetam 1,000 MG in 0.9 % Sodium Chloride 100 ML IVPB SCH ×2 (10:57→20:53)
[2021-09-26 21:14] VITALS: BP 76/48; PULSE 69; TEMP 97.4; O2SAT 67
== END 2021-09-26 21:56 | disposition expired | DRG 689 ==
LOC: 3ANU → SUATTDRO 20:06 → ICNU 09-14 14:09 → 2NNU 09-21 15:33 → ICNU 09-23 14:46 → 2ANU 09-26 01:47
PROVIDERS: ADMIT Internal Medicine; ATTEND Internal Medicine